=== PATIENT | male | born 1945 | race Caucasian/White ===

== ENCOUNTER 2024-08-22 06:33 | Emergency (ER) | payer OTHER ==
[~2024-08-22] VITALS: Ht 180.3 cm; Wt 91.0 kg
[2024-08-22 06:40] VITALS: O2SAT 99
[2024-08-22] MEDS: ACETAMINOPHEN 325MG TABLET PO ONE (06:54)
[2024-08-22] MEDS ORDERED: ACET-2708 MT (08:13)
[2024-08-22 08:27] VITALS: BP 119/71; PULSE 65; RESP 18; TEMP 36.8; O2SAT 99
== END 2024-08-22 08:28 | disposition home or self-care (01) ==
LOC: ER 06:48
DX: M25.561 Pain in right knee (principal); M25.551 Pain in right hip; M54.2 Cervicalgia; I10 Essential (primary) hypertension; Z85.038 Personal history of other malignant neoplasm of large intestine; M17.11 Unilateral primary osteoarthritis, right knee; V89.2XXA Person injured in unspecified motor-vehicle accident, traffic, initial encounter; Y93.89 Activity, other specified; Y92.89 Other specified places as the place of occurrence of the external cause; Y99.8 Other external cause status
CPT/HCPCS: 71045; 72170; 73562; 99284